=== PATIENT | female | born 1955 | race Caucasian/White ===

== ENCOUNTER 2023-01-27 18:47 | Emergency (ER) | payer MEDICARE, BC, SELFPAY ==
[2023-01-27] VITALS (7 sets, daily range): BP systolic 137–167; BP diastolic 70–82; PULSE 59–71; RESP 16; TEMP 37; O2SAT 98–99; BMI 21.7
--- NOTE | 2023-01-27 19:18 | ED_ITS ---
HPI - General Adult General Chief complaint: Cough Stated complaint: Chest pain, dry cough Time Seen by Provider: 01/27/23 19:11 History of Present Illness HPI narrative: This 67-year-old female comes in reporting upper respiratory symptoms for the past week. She states that her cough is more dry recently and she has discomfort in her chest when coughing. She does not report any fevers or shortness of breath. She did call to attempt to make an appointment with the clinic and was told to come here to the emergency department. She was hoping for a chest x-ray and did not feel that she needed to come to the emergency department but there was no appointment made in the clinic for her. Related Data Previous Rx's Medication Instructions Recorded acetaminophen 300 mg-codeine 30 mg 1 tab PO Q6H PRN pain #15 tabs 01/27/23 tablet Allergies Allergy/AdvReac Type Severity Reaction Status Date / Time No Known Drug Allergies Allergy Verified 01/27/23 19:03 Review of Systems Status of ROS: Reports: 10 or more systems reviewed and unremarkable except as noted in History and below Narrative: Constitutional: No fevers, no weight gain or loss. Eyes: No discharge. No vision changes. HENT: No congestion, no sore throat, no ear pain. Cardiovascular: No chest pain, no palpitations. Respiratory: No shortness of breath, no wheezes. Frequent cough with associated chest discomfort. Gastrointestinal: No abdominal pain, no vomiting, no diarrhea. Genitourinary: No dysuria, no hematuria. Musculoskeletal: Normal range of motion. Skin: No rashes, no pruritis. Neurological: No dizziness, weakness, sensory change, speech change. Endo/Heme/Allergies: No bruising or bleeding. No polydipsia. Pysch: no suicidality, no anxiety, no insomnia. All other systems reviewed and are negative. PFSH PFSH Social History Smoking Status: Never smoker Do you use any of these nicotine containing products: None Second hand tobacco smoke exposure: No How often do you have a drink containing alcohol: 2-4 times a month How many standard drinks containing alcohol do you have on a typical day: 1 or 2 AUDIT-C Alcohol total score: 2 Non-prescribed substance use: denies use Exam Narrative: Exam Narrative: Constitutional: Well-developed, well-nourished, no acute distress. HEENT: Normocephalic, atraumatic. Neck: Normal range of motion. Nontender. Supple. Heart: Regular. No murmurs. Normal rate. Intact distal pulses. Lungs: Clear to auscultation. No wheezes, rhonchi, or rales. Abdomen: Normal bowel sounds. Nontender. No rebound tenderness. Genitalia: Deferred. Back: No midline tenderness. Normal range of motion. Extremities: Normal range of motion. No injury. Skin: Intact. No rash. Warm. No erythema or pallor. Neurologic: No altered sensation. No weakness. Alert and oriented. Psychiatric: No suicidality. No anxiety or depression. No insomnia. Nursing notes and vitals signs are reviewed. Const: Vital Signs, click to edit/add: Vital Signs - 24 hr 01/27/23 18:59 01/27/23 19:37 01/27/23 19:38 Temperature 98.6 F Pulse Rate 62 63 Pulse Rate [Pulse Oximeter] 64 Respiratory Rate 16 Blood Pressure 137/70 Blood Pressure [Ri ght Upper Arm] 167/82 H Pulse Oximetry 99 98 99 Oxygen Delivery Me thod Room Air Course Vital Signs Vital signs: Initial Vital Signs Temperature 98.6 F 01/27/23 18:59 Temperature Source Temporal Artery Scan 01/27/23 18:59 Pulse Rate 64 01/27/23 18:59 Pulse Rhythm Regular 01/27/23 18:59 Pulse Strength 3+ Normal 01/27/23 18:59 Respiratory Rate 16 01/27/23 18:59 Blood Pressure 167/82 H 01/27/23 18:59 Blood Pressure Mean 110 01/27/23 18:59 Blood Pressure Position Sitting 01/27/23 18:59 Pulse Oximetry 99 01/27/23 18:59 Oxygen Delivery Method Room Air 01/27/23 18:59 Vital Signs Temperature 98.6 F 01/27/23 18:59 Pulse Rate 64 01/27/23 18:59 Respiratory Rate 16 01/27/23 18:59 Blood Pressure 167/82 H 01/27/23 18:59 Pulse Oximetry 99 01/27/23 18:59 Oxygen Delivery Method Room Air 01/27/23 18:59 Temperature 98.6 F 01/27/23 18:59 Pulse Rate 63 01/27/23 19:38 Respiratory Rate 16 01/27/23 18:59 Blood Pressure 137/70 01/27/23 19:38 Pulse Oximetry 99 01/27/23 19:38 Oxygen Delivery Method Room Air 01/27/23 18:59 Medical Decision Making MDM Narrative Medical decision making narrative: This 67-year-old female has had cough and upper respiratory symptoms for this week and now has some chest discomfort with coughing and states that her cough is more dry and less productive. She comes in simply wanted to see if a chest x-ray can be done to rule out pneumonia. Chest x-ray was acquired and there is no evidence of cardiopulmonary disease. This patient's vital signs are within normal limit as is her exam. She did receive a prescription for Tylenol 3 and is encouraged to use [id number] medicines also as needed and directed. Imaging Data Chest x-ray: Radiologist's impression: No acute cardiopulmonary abnormality. Discharge Plan Discharge Clinical Impression: Acute upper respiratory infection Patient Disposition: Home, Self-Care Condition: Unchanged Additional Instructions: Take medications as needed and indicated. Follow up with MD or return if worsening. Prescriptions: New acetaminophen-codeine 300-30 mg tablet 1 tab PO Q6H PRN (Reason: pain) Qty: 15 0RF Follow Up/Referrals: Provider,Not a Local [Primary Care Provider] - Stand Alone Forms: [employer] Info Instructions
--- NOTE | 2023-01-27 19:18 | CRLHL7_ITS ---
For Patients: As a result of the Century Cures Act, medical imaging exams and procedure reports are released immediately into your electronic medical record. You may view this report before your referring provider. If you have questions, please contact your health care provider. INDICATION: Cough. Comparison : January 01, 2014 TECHNIQUE: Two view chest radiograph. FINDINGS: Normal cardiomediastinal contours. Clear lungs. No pleural effusion or pneumothorax. IMPRESSION: No acute cardiopulmonary abnormality. Dictated by Bob Busch MD @ 01/27/2023 7:31:38 PM (Electronically Signed)
== END 2023-01-27 20:04 | disposition home or self-care (01) ==
PROVIDERS: Emergency Provider Emergency Medicine Emergency Medical Services
DX: J06.9 Acute upper respiratory infection, unspecified (principal)
CPT/HCPCS: 71046; 94761; 99283; 99284

== ENCOUNTER 2023-08-21 15:43 | Emergency (ER) | payer MEDICARE, BC, SELFPAY ==
[2023-08-21 16:02] VITALS: BP 117/65; PULSE 90; RESP 16; TEMP 37; O2SAT 98; BMI 21.7
--- NOTE | 2023-08-21 16:19 | CRLHL7_ITS ---
For Patients: As a result of the Century Cures Act, medical imaging exams and procedure reports are released immediately into your electronic medical record. You may view this report before your referring provider. If you have questions, please contact your health care provider. INDICATION: fall, headache, dizziness TECHNIQUE: CT head without contrast. COMPARISON: None. FINDINGS: No intracranial hemorrhage. No discrete mass or mass effect. There is no midline shift. The basilar cisterns are patent. No hydrocephalus. The castillo-white matter interface is otherwise preserved. No acute osseous abnormality. No extracalvarial soft tissue abnormality. The mastoid air cells are clear. The paranasal sinuses are well-aerated. The visualized portions of the orbits and globes are unremarkable. IMPRESSION: No acute intracranial process per unenhanced head CT. Please note that all CT scans at this facility use dose modulation, iterative reconstruction, and/or weight-based dosing when appropriate to reduce radiation dose to as low as reasonably achievable. Dictated by Harlan Fabian MD @ 08/21/2023 4:47:39 PM (Electronically Signed)
--- NOTE | 2023-08-21 16:27 | ED.GENADULT ---
HPI - General Adult General Date Seen: 08/21/23 Chief complaint: Head Injury/Pain Stated complaint: pain in head, dizziness Time Seen by Provider: 08/21/23 16:10 Source: patient Mode of arrival: ambulatory Limitations: no limitations History of Present Illness HPI narrative: patient is a 68-year-old woman who presents after a fall this morning at about 10:00 a.m.. I am seeing her at 4:00 p.m.. She says she is watching her son's large dogs, they were running around outside and 1 of them ran into her from behind knocking her backward where she struck her head on the ground in a [place] field. She denies loss of consciousness. Since then however she has had a headache and has felt dizzy. No fainting or seizures. No vomiting. No neck pain. No blood thinners. Related Data Previous Rx's Medication Instructions Recorded acetaminophen 300 mg-codeine 30 mg 1 tab PO Q6H PRN pain #15 tabs 01/27/23 tablet amoxicillin 500 mg capsule 1,000 mg (2 x 500 mg) PO TID 7 04/06/23 days #42 caps amoxicillin 500 mg capsule 1,000 mg (2 x 500 mg) PO TID 7 04/06/23 days #42 caps azithromycin 250 mg tablet 250 mg PO DIRECTED #6 tabs 04/06/23 azithromycin 250 mg tablet 250 mg PO DIRECTED #6 tabs 04/06/23 Allergies Allergy/AdvReac Type Severity Reaction Status Date / Time No Known Drug Allergies Allergy Verified 01/27/23 19:03 Review of Systems Status of ROS: Reports: 6 or more systems reviewed and unremarkable except as noted in History and below [facility] Social History Smoking Status: Never smoker Do you use any of these nicotine containing products: None Second hand tobacco smoke exposure: No How often do you have a drink containing alcohol: 2-4 times a month How many standard drinks containing alcohol do you have on a typical day: 1 or 2 AUDIT-C Alcohol total score: 2 Non-prescribed substance use: denies use service: No Exam Narrative: Exam Narrative: Vital signs as noted above. In general, an alert, well-appearing patient. Head: Normocephalic, atraumatic. No hematoma or abrasion. Eyes: Pupils are equal reactive. Extraocular movements are full. Conjunctivae are normal. ENT: Mucous membranes are moist. TMs normal bilaterally. No facial trauma. Neck: Supple without lymphadenopathy. Nontender to palpation. Heart: Regular rate and rhythm. No murmur or rub. Lungs: Clear bilaterally. No increased work of breathing, crackles or wheezes. Abdomen: Soft and nontender. No organomegaly. Extremities: Well perfused. No edema. No calf tenderness. Pulses intact. Neurologic: Patient is alert and oriented to person and place. Speech is fluent. Face is symmetric. Moves all extremities equally. Affect: Normal. Skin: Warm and dry. Well perfused. Const: Vital Signs, click to edit/add: Vital Signs - 24 hr 08/21/23 16:02 Temperature 98.6 F Pulse Rate [Pulse Oximeter] 90 Respiratory Rate 16 Blood Pressure [Ri ght Upper Arm] 117/65 Pulse Oximetry 98 Oxygen Delivery Me thod Room Air Documenting provider has reviewed patient's vital signs: yes Course Course ED Course: Given her age, I have elected to do a CT scan of the head. Reviewed with her that symptoms are likely related to concussion. CT of the head by my review negative, final radiology read negative. Reviewed this with her. Symptoms will likely dissipate over the next days to weeks. Primary care follow-up if needed for persistent symptoms. Ibuprofen or Tylenol, ice as needed. She declines nausea medication. Return to activities as symptoms allow. Vital Signs Vital signs: Initial Vital Signs Temperature 98.6 F 08/21/23 16:02 Temperature Source Temporal Artery Scan 08/21/23 16:02 Pulse Rate 90 08/21/23 16:02 Respiratory Rate 16 08/21/23 16:02 Blood Pressure 117/65 08/21/23 16:02 Blood Pressure Mean 82 08/21/23 16:02 Blood Pressure Position Sitting 08/21/23 16:02 Pulse Oximetry 98 08/21/23 16:02 Oxygen Delivery Method Room Air 08/21/23 16:02 Vital Signs Temperature 98.6 F 08/21/23 16:02 Pulse Rate 90 08/21/23 16:02 Respiratory Rate 16 08/21/23 16:02 Blood Pressure 117/65 08/21/23 16:02 Pulse Oximetry 98 08/21/23 16:02 Oxygen Delivery Method Room Air 08/21/23 16:02 Temperature 98.6 F 08/21/23 16:02 Pulse Rate 90 08/21/23 16:02 Respiratory Rate 16 08/21/23 16:02 Blood Pressure 117/65 08/21/23 16:02 Pulse Oximetry 98 08/21/23 16:02 Oxygen Delivery Method Room Air 08/21/23 16:02 Discharge Plan Discharge Clinical Impression: Concussion Patient Disposition: Home, Self-Care Condition: Stable Instructions: Concussion (ED) Additional Instructions: ibuprofen or Tylenol as needed, ice may be helpful as well. Return for severe headache, vomiting, or other worsening. Prescriptions: No Action acetaminophen-codeine 300-30 mg tablet 1 tab PO Q6H PRN (Reason: pain) Qty: 15 0RF amoxicillin 500 mg capsule 1,000 mg PO TID 7 Days Qty: 42 0RF azithromycin 250 mg tablet 250 mg PO DIRECTED Qty: 6 0RF Rx Instructions: For 250 mg dose pack: take 500 mg today (day 1), then 250 mg for 4 days (days 2-5) amoxicillin 500 mg capsule 1,000 mg PO TID 7 Days Qty: 42 0RF azithromycin 250 mg tablet 250 mg PO DIRECTED Qty: 6 0RF Rx Instructions: For 250 mg dose pack: take 500 mg today (day 1), then 250 mg for 4 days (days 2-5) Follow Up/Referrals: Shaina Mayen MD [Primary Care Provider] - Stand Alone [facility] Info Inst[facility]
== END 2023-08-21 17:42 | disposition home or self-care (01) ==
PROVIDERS: Emergency Provider Emergency Medicine; PCP Family Medicine
DX: S06.0X0A Concussion without loss of consciousness, initial encounter (principal); W01.0XXA Fall on same level from slipping, tripping and stumbling without subsequent striking against object, initial encounter
CPT/HCPCS: 70450; 99283; 99284

== ENCOUNTER 2023-12-29 10:30 | Outpatient (RCR) | payer MEDICARE, BC, SELFPAY | END 2024-04-27 23:59 | disposition home or self-care (01) | PROVIDERS: PCP Family Medicine; Visit Provider Family Medicine | DX: M54.50 Low back pain, unspecified (principal); R29.3 Abnormal posture; Z51.89 Encounter for other specified aftercare | CPT/HCPCS: 97110; 97112; 97161; 97535 ==